=== PATIENT | male | born 1985 ===

== ENCOUNTER 2016-08-02 16:18 | Emergency (ER) | payer BC ==
[2016-08-02 16:55] VITALS: BP 121/70
--- NOTE | 2016-08-02 20:22 | UC ---
FLU HPI - HPI Summary HPI Summary: Patient arrives to ED with CC of GOODWIN, dizziness, chills, sweats, muscle aches and fevers x 2 days. He denies N/V/C/D. He denies congestion or cough, but states he has been unable to breath through his nose at night for feeling "stuffy." He states the feeling is flu-like. He has been fatigued and weak. Patient is otherwise healthy and denies significant health problems. - History of Current Complaint Chief Complaint: UCGeneralIllness Stated Complaint: FLU LIKE Time Seen by Provider: 08/02/16 17:22 Hx Obtained From: Patient Onset/Duration: Sudden Onset Severity Currently: Mild Severity Initially: Mild Pain Intensity: 3 Pain Scale Used: 0-10 Numeric Associated Signs & Symptoms: Positive: Fever, T Max, F/C - Allergy/Home Medications Allergies/Adverse Reactions: Allergies Allergy/AdvReac Type Severity Reaction Status Date / Time No Known Allergies Allergy Verified 08/02/16 16:55 Home Medications: Home Medications Aspirin TAB* [Aspirin 325 MG TAB*] 975 mg PO Q6H PRN 08/02/16 [History Confirmed 08/02/16] PMH/Surg Hx/FS Hx/Imm Hx Previously Healthy: Yes - Surgical History Surgical History: None - Family History Known Family History: Positive: Unknown - Social History Occupation: Employed Full-time Alcohol Use: None Substance Use Type: None Smoking Status (MU): Never Smoked Tobacco Have You Smoked in the Last Year: No - Immunization History Most Recent Influenza Vaccination: not this season Review of Systems Constitutional: Fever, Chills, Fatigue Skin: Negative Eyes: Negative ENT: Negative Respiratory: Negative Cardiovascular: Negative Musculoskeletal: Myalgia Neurological: Headache, Other - dizziness Psychological: Negative All Other Systems Reviewed And Are Negative: Yes Physical Exam Triage Information Reviewed: Yes Appearance: Well-Appearing, Well-Nourished Vital Signs: Initial Vital Signs Temp 97.6 F 08/02/16 16:50 Pulse 71 08/02/16 16:50 Resp 14 08/02/16 16:50 BP 121/70 08/02/16 16:50 Pulse Ox 99 08/02/16 16:50 Vital Signs Reviewed: Yes Eye Exam: Normal Eyes: Positive: Conjunctiva Clear ENT Exam: Normal Dental Exam: Normal Neck exam: Normal Neck: Positive: Supple, Nontender Respiratory: Positive: Chest non-tender, Lungs clear Cardiovascular Exam: Normal Cardiovascular: Positive: RRR Musculoskeletal Exam: Normal Musculoskeletal: Positive: Strength Intact Neurological Exam: Normal Psychological: Positive: Normal Response To Family Skin Exam: Normal Flu Course/Dx - Course Course Of Treatment: Patient was encouraged to take Meclizine for dizziness and given rx. Tylenol as needed for fevers and discomfort. Follow up with PCP as needed. - Differential Dx/Diagnosis Differential Diagnosis/HQI/PQRI: Influenza, Pneumonia, Upper Respiratory Infection Provider Diagnoses: viral illness Discharge - Discharge Plan Condition: Stable Disposition: HOME Prescriptions: Meclizine TAB* [Antivert 12.5 TAB*] 25 mg PO TID #12 tab MDD 3 Patient Education Materials: Viral Syndrome (ED) Forms: *Work Release Referrals: Michel Esparza MD [Primary Care Provider] - Additional Instructions: Drink plenty of fluids. A humidifier in the home can help with congestion during the colder months. Take any medication prescribed to you as directed. If you have any questions regarding your medications, you may call the office or your pharmacist. If your symptoms fail to improve or worsen, please call your primary care provider; come back to urgent care or the emergency room. Drink plenty of fluids. Tylenol as needed for GOODWIN and body aches. Take the Meclizine as prescribed.
== END 2016-08-02 18:20 | disposition home or self-care (01) ==
LOC: UCCORT 16:18
DX: B34.9 Viral infection, unspecified (principal)
CPT/HCPCS: 87502; 99211; G0463